=== PATIENT | female | born 1940 | race Caucasian/White ===

== ENCOUNTER 2016-12-16 17:08 | Emergency (ER) | payer MEDICARE, OTHER ==
[~2016-12-16] VITALS: Ht 152.4 cm; Wt 52.5 kg
[~2016-12-16 17:08] MED LIST: AMLO-320 PO; ASPI-650 PO; CEPH-443 PO; FERR-55 PO; GLIP2.5T14 PO; GLIP5TAB13 PO; LEVO88TA3 PO; METF500T4 PO; PHEN-538 PO; ROSU20TA PO; VALS1TAB65 PO
[2016-12-16 17:16] VITALS: Ht 152.4 cm; Wt 52.5 kg
--- NOTE | 2016-12-16 17:50 | ERD ---
ER Documentation Chief Complaint Date/Time DATE: 12/16/16 TIME: 17:43 Chief Complaint S/P TRIPPED AND FALL,LEFT ELBOW PAIN HPI This pleasant 76-year-old female presents to emergency department today after mechanical trip and fall about 40 minutes ago in her backyard. Patient reports that her foot caught on something. States that she felt a little dizzy and fell. Patient denies hitting her head or loss of consciousness. She was able to get up without assistance, patient noticed she had an abrasion to her left elbow, pain in her elbow and pain in her left hand. Patient states she washed her wound with soap water, hydrogen peroxide. Developed a hematoma on her hand within minutes after fall. Patient states she called friends to have them take her to the emergency department but no one was available at this time. Patient states that she took a taxi over here. Patient reports pain is minimal, denies numbness or tingling to her fingers. Denies headache, nausea, or vomiting. ROS All systems reviewed and are negative except as per history of present illness. Medications Home Meds Active Scripts Acetaminophen* (Tylophen*) 500 Mg Capsule, 1 CAP PO Q6H Y for PAIN AND OR ELEVATED TEMP, #20 CAP Prov:JAYLEN,ED 12/16/16 Neomycn/Baci Zn/Pmyx Bs/Pramox (NEOSPORIN + PAIN RELIEF OINT) 28.3 Gm Oint...g. , 28.3 GM TP BID, #1 TUB Prov:JAYLEN,ED 12/16/16 Phenazopyridine Hcl* (Pyridium*) 200 Mg Tab, 200 MG PO TID Y for URINARY PAIN for 2 Days, #6 TAB Prov:JATIN LEMON PA-C 01/14/16 Cephalexin* (Keflex*) 500 Mg Capsule, 500 MG PO TID for 7 Days, CAP Prov:JATIN LEMON PA-C 01/14/16 Reported Medications Amlodipine-Atorvastatin (Amlodipine-Atorvastatin) 10-10 Mg Tablet, 1 EACH PO DAILY, TAB 10/11/15 Glipizide XL* (Glipizide XL*) 2.5 Mg Tab.er.24, 2.5 MG PO DAILY, TAB 10/11/15 Ferrous Sulfate* (Ferrous Sulfate*) 325 Mg Tablet, PO DAILY 12/15/12 Aspirin (Aspirin) 81 Mg Tablet, PO DAILY 12/15/12 Rosuvastatin Calcium* (Crestor*) 20 Mg Tablet, PO DAILY 12/15/12 Levothyroxine Sodium* (Levothyroxine Sodium*) 88 Mcg Tablet, PO DAILY 12/15/12 Valsartan-Hydrochlorothiazide (Diovan HCT) 1 Tab Tablet, PO BID 12/15/12 Glipizide* (Glipizide*) 5 Mg Tablet, PO DAILY 12/15/12 Metformin* (Glucophage*) 500 Mg Tab, PO BID 12/15/12 Allergies Allergies: Coded Allergies: No Known Drug Allergies (Verified Allergy, Unknown, 12/16/16) PMhx/Soc History of Surgery: Yes (hysterectomy 1994, carotid SURGERY 2004) Anesthesia Reaction: No Hx Neurological Disorder: Yes Hx Respiratory Disorders: Yes Hx Cardiac Disorders: Yes (GOING TO PACEMAKER 2ND HEART BLOCK) Hx Psychiatric Problems: No Hx Miscellaneous Medical Probl: No Hx Alcohol Use: No Hx Substance Use: No Hx Tobacco Use: No Smoking Status: Never smoker Physical Exam Vitals Vitals stable, triage notes reviewed Physical Exam Const: No acute distress Head: Atraumatic Eyes: Normal Conjunctiva, PERRLA, EOMI ENT: Normal External Ears, Nose and Mouth. Neck: Cardio: Abd: Skin: Left posterior forearm abrasion Back: Ext: Upper Extremity -left hand, forearm, elbow: Skin: Left posterior forearm superficial abrasion not actively bleeding at this time, left hand between thumb and first digit presents with a soft palpable hematoma Compartments: Soft Motor: Full active range of motion shoulder/elbow/wrist/ hand Sensation: Intact shoulder/pinky/middle finger/thumb web space Bones: Nontender humerus/elbow/forearm/wrist/hand Snuffbox: Palpable tenderness, hematoma noted Joints: No effusion Pulses/Perfusion: 2+ radial, Capillary refill < 2 seconds Neur: Neuro: M/S: Alert and oriented Face: EOMI, face and pharynx with normal sensation and function Motor: Normal strength throughout Sensation: Normal sensation throughout Speech: Normal Cerebel: Normal coordination Normal gait Normal finger to nose DTR: 2+ and symmetric upper/lower extremities Psych: Normal Mood and Affect Nexus criteria assessment: MLTTP: None Intoxication: None Distracting Injury: None Focal Neurodeficit: None AMS: None [Patient does not meet criteria for cervical imaging.] Results 24 hrs Current Medications Medications (Trade) Dose Ordered Sig/Willard Route PRN Reason Start Time Stop Time Status Last Admin Dose Admin Acetaminophen (Tylenol Tab) 650 mg ONCE ONCE PO 12/16/16 18:00 12/16/16 18:01 DC 12/16/16 17:51 Procedures/MDM PROCEDURE: X-ray left hand CLINICAL INDICATION: Fall with left hand injury. TECHNIQUE: 3 views left hand. COMPARISON: None. FINDINGS: Demineralization limits evaluation of fine osseous detail. Suspected remote injury of the radial collateral ligament at the fourth MCP joint with heterotopic ossification. No acute fracture dislocation. Soft tissues otherwise unremarkable. IMPRESSION: No acute fracture. Physician Mario Date Time Electronically viewed and signed by Physician Mario on 12/16/2016 19:12 PROCEDURE: X-ray left elbow. CLINICAL INDICATION: Tip in fall with left elbow pain. TECHNIQUE: 3 views left elbow COMPARISON: None FINDINGS: Demineralization limits evaluation of fine osseous detail. No acute fracture or dislocation. Enthesophyte at the lateral humeral condyle. Soft tissues unremarkable. IMPRESSION: No acute fracture. Physician Mario Date Time Electronically viewed and signed by Physician Mario on 12/16/2016 19:11 This pleasant 76-year-old female presents to emergency department after mechanical trip and fall in her backyard with injury to left elbow, and left hand. Patient reports history of diabetes, hypertension, controlled on medication. Patient states her foot got caught on something, fell and she reports dizziness. Patient states blood pressure has been stable, she denies chest pain, shortness of breath, or dizziness or numbness or tingling to her fingertips at this time. Patient has full range of motion of left arm elbow and hand. Reports she was able to stand after fall without assistance. At home wound care with soap water and hydrogen peroxide, low suspicion for fracture x-rays obtained; x-ray left elbow demineralization limits evaluation of fine osseous details no acute fracture or dislocation ENTHESOPHYTE at the lateral humeral condyle. Soft tissue unremarkable. X-ray left hand demineralization limits evaluation of fine osseous details. Suspected remote injury of the radial contralateral ligament at the fourth MCP joint with heterotopic ossification. No acute fracture or dislocation. Soft tissue otherwise unremarkable. No acute fracture. Patient placed in a left thumb spica and Tylenol for pain, I feel patient is appropriate for outpatient management with primary care physician. I feel the patient is stable for discharge at this time. I have discussed results, examination findings, the treatment plan with the patient and family present prior to discharge. Indications for emergent reevaluation, side effects of medication were also discussed. All questions were answered. Patient verbalizes understanding and agrees with plan of care. Departure Diagnosis: Primary Impression: Abrasion of elbow, left Encounter type: initial encounter Qualified Code: S50.312A - Abrasion of elbow, left, initial encounter Additional Impression: Contusion of left hand, initial encounter Condition: Good Patient Instructions: Abrasion, Contusion, Hand Additional Instructions: Thank you for for coming to [facility] for your care today. Please ask your nurse or provider if you have questions about your care today and do not leave until all your questions have been answered. Please use any medications given as directed and follow-up with your doctor (or the doctor you were referred to) in the next 2-3 days. If you do not have a primary care doctor you may follow up at the [facility] (listed below). You may also use motrin and tylenol as needed for fever and/or pain unless instructed otherwise by your provider or nurse. Indications for more urgent follow-up have been discussed, but you may return to the Emergency Department at ANY time for any worrisome or worsening symptoms. If you have abdominal pain, please know that no test or exam you received is perfect and you should follow up within 8 hours for continued pain. If you had any imaging studies today, such as an X-Ray or CT Scan, these studies will be reviewed later by a radiologist. You will be called if there are important findings that were not identified today, so make sure the contact information you provided at registration is correct. If you received any narcotic pain control medicine today, such as Vicodin, Morphine or Dilaudid, your coordination and judgment may be affected for a number of hours. Please do not drive or operate heavy machinery, and you may want someone to assist you at home. If you were given a prescription for narcotic medication, be aware that it is very addictive- use sparingly and only if necessary. ED [place] Dec 16, 2016 17:50
[2016-12-16] MEDS ORDERED: ACETAMINOPHEN 325 MG TAB PO ONE (18:00)
[2016-12-16] MEDS ORDERED: NEOM28.34 TP (18:05)
[2016-12-16] MEDS ORDERED: ACET500C5 PO (18:06)
--- NOTE | 2016-12-16 19:11 | RADRPT ---
PROCEDURE: X-ray left elbow. CLINICAL INDICATION: Tip in fall with left elbow pain. TECHNIQUE: 3 views left elbow COMPARISON: None FINDINGS: Demineralization limits evaluation of fine osseous detail. No acute fracture or dislocation. Enthe sophyte at the lateral humeral condyle. Soft tissues unremarkable. IMPRESSION: No acute fracture. RPTAT: [facility] Physician Mario Date Time Electronically viewed and signed by Yaneli Pope Physician on 12/16/2016 19:11 RS/
--- NOTE | 2016-12-16 19:12 | RADRPT ---
PROCEDURE: X-ray left hand CLINICAL INDICATION: Fall with left hand injury. TECHNIQUE: 3 views left hand. COMPARISON: None. FINDINGS: Demineralization limits evaluation of fine osseous detail. Suspected remote injury of the radial co llateral ligament at the fourth MCP joint with heterotopic ossification. No acute fracture dislocat ion. Soft tissues otherwise unremarkable. IMPRESSION: No acute fracture. RPTAT: [facility] Physician Mario Date Time Electronically viewed and signed by Yaneli Pope Physician on 12/16/2016 19:12 RS/
[2016-12-16 19:55] VITALS: BP 138/65; PULSE 107; RESP 16
== END 2016-12-16 20:01 | disposition home or self-care (01) ==
LOC: FTE 17:08
DX: S50.312A Abrasion of left elbow, initial encounter (principal); S60.222A Contusion of left hand, initial encounter; I10 Essential (primary) hypertension; E11.9 Type 2 diabetes mellitus without complications; E03.9 Hypothyroidism, unspecified; W01.0XXA Fall on same level from slipping, tripping and stumbling without subsequent striking against object, initial encounter; Y92.89 Other specified places as the place of occurrence of the external cause; Z95.0 Presence of cardiac pacemaker; Z79.84 Long term (current) use of oral hypoglycemic drugs; Z79.82 Long term (current) use of aspirin

== ENCOUNTER 2017-06-06 15:28 | Emergency (ER) | END 2017-06-06 20:01 | disposition home or self-care (01) | DX: S32.019A Unspecified fracture of first lumbar vertebra, initial encounter for closed fracture (principal); I10 Essential (primary) hypertension; E11.9 Type 2 diabetes mellitus without complications; E03.9 Hypothyroidism, unspecified; W01.198A Fall on same level from slipping, tripping and stumbling with subsequent striking against other object, initial encounter; Y92.9 Unspecified place or not applicable; Z79.82 Long term (current) use of aspirin; Z79.84 Long term (current) use of oral hypoglycemic drugs; Z95.0 Presence of cardiac pacemaker ==

== ENCOUNTER 2017-06-10 20:33 | Emergency (ER) | payer MEDICARE, OTHER ==
[~2017-06-10] VITALS: Ht 152.4 cm; Wt 52.0 kg
[~2017-06-10 20:33] MED LIST changes: +ACET500C5 PO; -AMLO-320 PO; +AMLO-321 PO; +NEOM28.34 TP; +TRAM50TA2 PO
[2017-06-10 20:37] VITALS: Ht 152.4 cm; Wt 52.0 kg
[2017-06-10] MEDS ORDERED: MAGN296S40 PO (20:53)
[2017-06-10] MEDS ORDERED: SENN-53 PO (20:53)
[2017-06-10] MEDS ORDERED: ONDA4TAB14 PO (20:53)
[2017-06-10] MEDS ORDERED: DOCU-144 PO (20:53)
[2017-06-10] MEDS ORDERED: LACTULOSE 30ML CUP PO ONE (21:00)
[2017-06-10 21:13] VITALS: BP 126/68; PULSE 81; RESP 20; TEMP 98.4
--- NOTE | 2017-06-10 22:36 | ERD ---
ER Documentation Chief Complaint Date/Time DATE: 06/10/17 TIME: 22:34 Chief Complaint c/o abd pain and constipation x 4 days. Dc'd 06/06/17 for back fx. HPI Patient is a 77-year-old female with hypertension and diabetes who presents with abdominal pain and constipation. She said that she was seen for a visit on June 06 and was diagnosed with a compression fracture and was given a prescription for tramadol and Tylenol. On June 07 she started with vomiting and then has had constipation over the past few days. She has not had a bowel movement since June 07. Upon review of old medical records the patient has multiple visits to the ER for various complaints. Her primary doctor is Dr. Jimenez. ROS All systems reviewed and are negative except as per history of present illness. Medications Home Meds Active Scripts Ondansetron (Ondansetron Odt) 4 Mg Tab.rapdis, 4 MG PO Q6H Y for NAUSEA AND/OR VOMITING, #10 TAB Prov:JUAN HERRON MD 06/10/17 Magnesium Citrate* (Magnesium Citrate*) 296 Ml Solution, 296 ML PO ONCE, #1 BOTTLE Prov:JUAN HERRON MD 06/10/17 Sennosides* (Senna Lax*) 8.6 Mg Tablet, 1 TAB PO DAILY, #30 TAB Prov:JUAN HERRON MD 06/10/17 Docusate Sodium* (Colace*) 100 Mg Capsule, 100 MG PO TID, #30 CAP Prov:JUAN HERRON MD 06/10/17 Tramadol HCl (Tramadol HCl) 50 Mg Tablet, 50 MG PO Q4 Y for PAIN, #20 TAB Prov:CASPER MILLARD MD 06/06/17 Acetaminophen* (Tylophen*) 500 Mg Capsule, 1 CAP PO Q6H Y for PAIN AND OR ELEVATED TEMP, #20 CAP Prov:CASPER MILLARD MD 06/06/17 Acetaminophen* (Tylophen*) 500 Mg Capsule, 1 CAP PO Q6H Y for PAIN AND OR ELEVATED TEMP, #20 CAP Prov:JAYLENED 12/16/16 Neomycn/Baci Zn/Pmyx Bs/Pramox (NEOSPORIN + PAIN RELIEF OINT) 28.3 Gm Oint...g. , 28.3 GM TP BID, #1 TUB Prov:JAYLEN,ED 12/16/16 Phenazopyridine Hcl* (Pyridium*) 200 Mg Tab, 200 MG PO TID Y for URINARY PAIN for 2 Days, #6 TAB Prov:JATIN LEMON PA-C 01/14/16 Cephalexin* (Keflex*) 500 Mg Capsule, 500 MG PO TID for 7 Days, CAP Prov:JATIN LEMON PA-C 01/14/16 Reported Medications Amlodipine-Atorvastatin (Amlodipine-Atorvastatin) 10-10 Mg Tablet, 1 EACH PO DAILY, TAB 10/11/15 Glipizide XL* (Glipizide XL*) 2.5 Mg Tab.er.24, 2.5 MG PO DAILY, TAB 10/11/15 Ferrous Sulfate* (Ferrous Sulfate*) 325 Mg Tablet, PO DAILY 12/15/12 Aspirin (Aspirin) 81 Mg Tablet, PO DAILY 12/15/12 Rosuvastatin Calcium* (Crestor*) 20 Mg Tablet, PO DAILY 12/15/12 Levothyroxine Sodium* (Levothyroxine Sodium*) 88 Mcg Tablet, PO DAILY 12/15/12 Valsartan-Hydrochlorothiazide (Diovan HCT) 1 Tab Tablet, PO BID 12/15/12 Glipizide* (Glipizide*) 5 Mg Tablet, PO DAILY 12/15/12 Metformin* (Glucophage*) 500 Mg Tab, PO BID 12/15/12 Allergies Allergies: Coded Allergies: No Known Drug Allergies (Verified Allergy, Unknown, 06/06/17) PMhx/Soc History of Surgery: Yes (hysterectomy 1994, carotid SURGERY 2004 ) Anesthesia Reaction: No Hx Neurological Disorder: Yes Hx Respiratory Disorders: Yes Hx Cardiac Disorders: Yes (HTN , PACEMAKER ) Hx Psychiatric Problems: No Hx Miscellaneous Medical Probl: Yes (DM , HYPOTHYROID ) Hx Alcohol Use: No Hx Substance Use: No Hx Tobacco Use: No Smoking Status: Never smoker FmHx Family History: No diabetes Physical Exam Vitals Vital Signs Date Time Temp Pulse Resp B/P Pulse Ox O2 Delivery O2 Flow Rate FiO2 06/10/17 21:13 98.4 81 20 126/68 97 Room Air 06/10/17 20:37 98.4 102 20 126/68 97 Physical Exam Const: No acute distress Head: Atraumatic Eyes: Normal Conjunctiva ENT: Normal External Ears, Nose and Mouth. Neck: Full range of motion..~ No meningismus. Resp: Clear to auscultation bilaterally Cardio: Regular rate and rhythm, no murmurs Abd: Soft, non tender, non distended. Normal bowel sounds Skin: No petechiae or rashes Back: No midline or flank tenderness Ext: No cyanosis, or edema Neur: Awake and alert Psych: Normal Mood and Affect Results 24 hrs Current Medications Medications (Trade) Dose Ordered Sig/Willard Route PRN Reason Start Time Stop Time Status Last Admin Dose Admin Lactulose (Enulose) 20 gm ONCE ONCE PO 06/10/17 21:00 06/10/17 21:01 DC 06/10/17 21:05 Procedures/MDM Patient is a 77-year-old male with hypertension and diabetes who presents with vomiting and constipation. She has no abdominal pain on exam and no distention. I believe she likely has constipation and vomiting from recent tramadol prescription. She was not given any stool softeners and I believe she likely became constipated from the narcotic medicine. The patient is otherwise well-appearing and well-hydrated. She had a CT scan done on June 06 and had no acute surgical process at that time. I do not believe she requires repeat CT scan or laboratory studies at this time. I believe outpatient management is appropriate but the patient will need close follow-up with her primary doctor within 24-48 hours for reevaluation. She can return sooner for any worsening symptoms. Departure Diagnosis: Primary Impression: Constipation Constipation type: unspecified constipation type Qualified Code: K59.00 - Constipation, unspecified constipation type Additional Impression: Abdominal pain Abdominal location: generalized Qualified Code: R10.84 - Generalized abdominal pain Condition: Fair Patient Instructions: Abdominal Pain, Treating Constipation Additional Instructions: Call your primary care doctor TOMORROW for an appointment during the next 1-2 days.See the doctor sooner or return here if your condition worsens before your appointment time. JUAN HERRON MD Jun 10, 2017 22:36
== END 2017-06-10 21:14 | disposition home or self-care (01) ==
LOC: E/R 20:33
DX: K59.00 Constipation, unspecified (principal); E11.9 Type 2 diabetes mellitus without complications; I10 Essential (primary) hypertension; E03.9 Hypothyroidism, unspecified; Z79.82 Long term (current) use of aspirin; Z79.84 Long term (current) use of oral hypoglycemic drugs; Z95.0 Presence of cardiac pacemaker
CPT/HCPCS: 99283

== ENCOUNTER 2017-06-27 14:38 | Emergency (ER) | payer MEDICARE, OTHER ==
[~2017-06-27] VITALS: Ht 149.9 cm; Wt 50.0 kg
[~2017-06-27 14:38] MED LIST changes: +DOCU-144 PO; +MAGN296S40 PO; +ONDA4TAB14 PO; +SENN-53 PO
[2017-06-27 14:40] VITALS: Ht 149.9 cm; Wt 50.0 kg
[2017-06-27] MEDS ORDERED: KETOROLAC 15 MG INJ IV STA (16:18)
[2017-06-27 16:39] VITALS: BP 155/61; PULSE 88; RESP 18; TEMP 98.1
[2017-06-27 16:50] LABS: BASOPHILS % 0.4 % (0.0-2.0); EOSINOPHILS % 0.2 % (0.0-7.0); HEMATOCRIT 31.8 % (37.0-47.0); LYMPHOCYTES # 0.9 10^3/ul (0.8-2.9); LYMPHOCYTES % 21.1 % (15.0-51.0); MEAN CORPUSCULAR HEMOGLOBIN 29.5 pg (29.0-33.0); MEAN CORPUSCULAR HGB CONC 34.6 g/dl (32.0-37.0); MEAN CORPUSCULAR VOLUME 85.3 fl (82.0-101.0); MONOCYTE # 0.7 10^3/ul (0.3-0.9); MONOCYTES % 15.2 % (0.0-11.0); NEUTROPHIL # 2.8 10^3/ul (1.6-7.5); NEUTROPHILS % 62.9 % (39.0-77.0); PLATELET COUNT 290 10^3/UL (140-415); RED BLOOD COUNT 3.73 10^6/ul (4.20-5.40); RED CELL DISTRIBUTION WIDTH 11.7 % (11.5-14.5); WHITE BLOOD COUNT 4.5 10^3/ul (4.8-10.8)
[2017-06-27 17:12] LABS: ALBUMIN 4.8 g/dl (3.3-4.9); ALBUMIN/GLOBULIN RATIO 1.33; BILIRUBIN,INDIRECT 0.5 mg/dl (0-1.1); BILIRUBIN,TOTAL 0.5 mg/dl (0.2-1.3); CALCIUM 9.4 mg/dl (8.4-10.2); CREATININE 0.77 mg/dl (0.44-1.00); POTASSIUM 3.2 mmol/L (3.5-5.1); TOTAL PROTEIN 8.4 g/dl (6.1-8.1)
--- NOTE | 2017-06-27 17:50 | RADRPT ---
PROCEDURE: CT Abdomen and Pelvis without contrast. CLINICAL INDICATION: Abdominal pain. Status post x 3 weeks[address] TECHNIQUE: CT scan of the abdomen and pelvis without contrast was performed on a multidetector hig h-resolution CT scanner. The patient was scanned without intravenous contrast. Coronal and sagittal reformatted images were obtained from the axial source images. Images were reviewed on a high-resol [employer] PACS workstation. The total exam CTDI equals 5.68 mGy and the total exam DLP equals 282.08 mGy -cm. One or more of the following dose reduction techniques were used: Automated exposure control. Adjustment of the mA and/or kV according to patient size. Use of iterative reconstruction technique. COMPARISON: None FINDINGS: CT abdomen: The lung bases are clear. The heart size is normal, without pericardial thickening or effusion. Par antonettellstephanie imaged pacemaker leads seen in the right heart. The liver is normal in size and density without focal mass or intrahepatic biliary dilatation. The spleen is normal in size and homogeneous in density. The stomach is partially collapsed, but is geoffrey ssly unremarkable. The pancreas as visualized is normal. The gallbladder is unremarkable. There is no evidence for biliary dilatation. The adrenal glands are symmetric and normal. The kidneys are symmetrically unremarkable as well. There is 4 mm nonobstructing stone in the mid pole left kidney. The aorta is of normal caliber. Aortic vascular calcifications are present. There is no retroperit gregg lymphadenopathy. The anuj hepatis region is clear. There are scattered colonic diverticula without evidence of acute diverticulitis. CT pelvis: The small bowel loops situated within the pelvis are unremarkable. The uterus is not identified. T he pelvic sidewalls and inguinal regions are clear. The sigmoid colon and rectum are unremarkable. No mass, lymphadenopathy, or free fluid is seen. No acute inflammation is seen. The surrounding o sseous structures are remarkable for degenerative spondylosis of the spine. No osteolytic or osteob lastic lesion is detected. Acute/subacute compression fracture of L1 with approximately 40% height l oss with minimal retropulsion. IMPRESSION: 1. Acute/subacute compression fracture of L1 with progressive height loss now measures approximatel y 40%. Minimal retropulsion with no significant canal stenosis. 2. Punctate nonobstructing left renal stone. 3. Scattered colonic diverticula without evidence of acute diverticulitis. 4. Aortoiliac atherosclerosis. RPTAT: BB .Fernando Barrett MD, MD Date Time Electronically viewed and signed by .Fernando Barrett MD, MD on 06/27/2017 17:44 .O/
[2017-06-27] MEDS ORDERED: SOD CHLORIDE 0.9% 1,000 ML IV ONE (18:00)
[2017-06-27] MEDS ORDERED: POTASSIUM CHLORIDE (SR) 20 MEQ TAB PO STA (18:05)
[2017-06-27] MEDS ORDERED: LEVO88TA3 PO (18:24)
[2017-06-27] MEDS ORDERED: METF500T4 PO (18:24)
[2017-06-27] MEDS ORDERED: AMLO-147 PO (18:24)
[2017-06-27] MEDS ORDERED: VALS160T20 PO (18:25)
[2017-06-27] MEDS ORDERED: HYDR12.58 PO (18:25)
[2017-06-27] MEDS ORDERED: ROSU20TA PO (18:26)
[2017-06-27] MEDS ORDERED: ASPI-664 PO (18:26)
[2017-06-27 18:55] LABS: ADD UMIC YES; UR ASCORBIC ACID NEGATIVE (NEGATIVE); UR BILIRUBIN (Dip) NEGATIVE (NEGATIVE); UR BLOOD (Dip) NEGATIVE (NEGATIVE); UR CLARITY CLEAR (CLEAR); UR COLOR YELLOW (YELLOW); UR GLUCOSE (Dip) NEGATIVE (NEGATIVE); UR KETONES (Dip) NEGATIVE (NEGATIVE); UR LEUKOCYTE ESTERASE (Dip) 1+ Leu/ul (NEGATIVE); UR NITRITE (Dip) NEGATIVE (NEGATIVE); UR NONSQUAMOUS EPITHELIAL CELL 1 /HPF (NONE SEEN); UR RBC 0 /HPF (0-5); UR SPECIFIC GRAVITY (Dip) 1.011 (1.003-1.030); UR TOTAL PROTEIN (Dip) NEGATIVE (NEGATIVE); UR UROBILINOGEN (Dip) 1+ mg/dL (NEGATIVE)
[2017-06-27] MEDS ORDERED: DOCU-144 PO (19:17)
[2017-06-27] MEDS ORDERED: CEPH-443 PO (19:17)
[2017-06-27] MEDS ORDERED: CEPHALEXIN 500 MG CAP PO ONE (19:30)
--- NOTE | 2017-06-28 00:15 | ERD ---
ER Documentation Chief Complaint Chief Complaint ABD PAIN AND BACK PAIN S/P FALL 06/06/17 HPI 77-year-old woman complains of diffuse abdominal discomfort and small bowel movements. She has a history of constipation and was seen and evaluated here recently for the same. She denies dysuria, no fevers or chills, no chest pain or shortness of breath. ROS All systems reviewed and are negative except as per history of present illness. Medications Home Meds Active Scripts Docusate Sodium* (Colace*) 100 Mg Capsule, 100 MG PO BID for CONSTIPATION, #30 CAP Prov:SHANELL ANDRADE MD 06/27/17 Cephalexin* (Keflex*) 500 Mg Capsule, 500 MG PO TID for 5 Days, CAP Prov:SHANELL ANDRADE MD 06/27/17 Reported Medications Aspirin* (Aspirin* EC) 81 Mg Tablet.dr, 81 MG PO DAILY, TAB 06/27/17 Rosuvastatin Calcium* (Crestor*) 20 Mg Tablet, 20 MG PO QHS, #30 TAB 06/27/17 Valsartan* (Diovan*) 160 Mg Tablet, 160 MG PO BID, TAB 06/27/17 Hydrochlorothiazide* (Hydrochlorothiazide*) 12.5 Mg Tablet, 12.5 MG PO DAILY, # 30 TAB 06/27/17 Amlodipine Besylate* (Amlodipine Besylate*) 10 Mg Tablet, 10 MG PO DAILY, #30 TAB 06/27/17 Levothyroxine Sodium* (Levothyroxine Sodium*) 88 Mcg Tablet, 88 MCG PO BEFORE BREAKFAST, #30 TAB 06/27/17 Metformin Hcl* (Metformin Hcl*) 500 Mg Tablet, 500 MG PO WITH BREAKFAST DINNE, # 60 TAB 06/27/17 Discontinued Reported Medications Amlodipine-Atorvastatin (Amlodipine-Atorvastatin) 10-10 Mg Tablet, 1 EACH PO DAILY, TAB 10/11/15 Glipizide XL* (Glipizide XL*) 2.5 Mg Tab.er.24, 2.5 MG PO DAILY, TAB 10/11/15 Ferrous Sulfate* (Ferrous Sulfate*) 325 Mg Tablet, PO DAILY 12/15/12 Aspirin (Aspirin) 81 Mg Tablet, PO DAILY 12/15/12 Rosuvastatin Calcium* (Crestor*) 20 Mg Tablet, PO DAILY 12/15/12 Levothyroxine Sodium* (Levothyroxine Sodium*) 88 Mcg Tablet, PO DAILY 12/15/12 Valsartan-Hydrochlorothiazide (Diovan HCT) 1 Tab Tablet, PO BID 12/15/12 Glipizide* (Glipizide*) 5 Mg Tablet, PO DAILY 12/15/12 Metformin* (Glucophage*) 500 Mg Tab, PO BID 12/15/12 Discontinued Scripts Ondansetron (Ondansetron Odt) 4 Mg Tab.rapdis, 4 MG PO Q6H Y for NAUSEA AND/OR VOMITING, #10 TAB Prov:JUAN HERRON MD 06/10/17 Magnesium Citrate* (Magnesium Citrate*) 296 Ml Solution, 296 ML PO ONCE, #1 BOTTLE Prov:JUAN HERRON MD 06/10/17 Sennosides* (Senna Lax*) 8.6 Mg Tablet, 1 TAB PO DAILY, #30 TAB Prov:JUAN HERRON MD 06/10/17 Docusate Sodium* (Colace*) 100 Mg Capsule, 100 MG PO TID, #30 CAP Prov:JUAN HERRON MD 06/10/17 Tramadol HCl (Tramadol HCl) 50 Mg Tablet, 50 MG PO Q4 Y for PAIN, #20 TAB Prov:CASPER MILLARD MD 06/06/17 Acetaminophen* (Tylophen*) 500 Mg Capsule, 1 CAP PO Q6H Y for PAIN AND OR ELEVATED TEMP, #20 CAP Prov:CASPER MILLARD MD 06/06/17 Acetaminophen* (Tylophen*) 500 Mg Capsule, 1 CAP PO Q6H Y for PAIN AND OR ELEVATED TEMP, #20 CAP Prov:JAYLENED 12/16/16 Neomycn/Baci Zn/Pmyx Bs/Pramox (NEOSPORIN + PAIN RELIEF OINT) 28.3 Gm Oint...g. , 28.3 GM TP BID, #1 TUB Prov:JAYLEN,ED 12/16/16 Phenazopyridine Hcl* (Pyridium*) 200 Mg Tab, 200 MG PO TID Y for URINARY PAIN for 2 Days, #6 TAB Prov:JATIN LEMON PA-C 01/14/16 Cephalexin* (Keflex*) 500 Mg Capsule, 500 MG PO TID for 7 Days, CAP Prov:JATIN LEMON PA-C 01/14/16 Allergies Allergies: Coded Allergies: No Known Drug Allergies (Verified Allergy, Unknown, 06/27/17) PMhx/Soc Hypertension, hypothyroidism, gastritis, chronic constipation, diabetes mellitus , recent L spine fracture History of Surgery: Yes (hysterectomy 1994, carotid SURGERY 2004 ) Anesthesia Reaction: No Hx Neurological Disorder: Yes Hx Respiratory Disorders: Yes Hx Cardiac Disorders: Yes (HTN , PACEMAKER ) Hx Psychiatric Problems: No Hx Miscellaneous Medical Probl: Yes (DM , HYPOTHYROID ) Hx Alcohol Use: No Hx Substance Use: No Hx Tobacco Use: No Smoking Status: Never smoker FmHx Family History: No diabetes Physical Exam Vitals Vital Signs Date Time Temp Pulse Resp B/P Pulse Ox O2 Delivery O2 Flow Rate FiO2 06/27/17 16:39 98.1 88 18 155/61 98 Room Air 06/27/17 14:40 98.5 85 16 115/57 97 Physical Exam GENERAL: Well-developed, well-nourished, well-hydrated, in no apparent distress , looks nontoxic in appearance HEENT: Moist mucous membranes, pink conjunctiva, no cervical spine tenderness or step-off deformities, no goiter, no jaundice or icterus, extraocular movements intact without pain. No submandibular induration, and no pharyngeal erythema NEURO: Alert and oriented 3, cranial nerves II through XII intact bilaterally, pupils equal round reactive to light, no focal deficits or facial asymmetry, sensation intact distally Strength 5/5 in upper and lower extremities bilaterally CARDIAC: Regular rate and rhythm, no murmurs rubs or gallops LUNGS: Clear bilaterally no wheezing crackles or stridor ABDOMEN: Soft nontender, no guarding, no rigidity, no rebound, no psoas sign no obturator sign. Normoactive bowel sounds SKIN: Warm and dry to touch, no abrasions, contusions, or hematomas, no lacerations, no ecchymosis, no target lesions, and without ulcers EXTREMITIES: No clubbing cyanosis or edema, calves are bilaterally symmetrical, no Homans sign, no popliteal cord sign. Distal pulses equal and bilateral PSYCH: Normal affect without agitation or irritability Result Diagram: 06/27/17 1624 06/27/17 1624 Results 24 hrs Laboratory Tests Test 06/27/17 16:24 06/27/17 18:15 10/25/17 18:33 White Blood Count 4.510^3/ul Red Blood Count 3.7310^6/ul Hemoglobin 11.0g/dl Hematocrit 31.8% Mean Corpuscular Volume 85.3fl Mean Corpuscular Hemoglobin 29.5pg Mean Corpuscular Hemoglobin Concent 34.6g/dl Red Cell Distribution Width 11.7% Platelet Count 10329^3/UL Mean Platelet Volume 9.0fl Neutrophils % 62.9% Lymphocytes % 21.1% Monocytes % 15.2% Eosinophils % 0.2% Basophils % 0.4% Nucleated Red Blood Cells % 0.0/100WBC Neutrophils # 2.810^3/ul Lymphocytes # 0.910^3/ul Monocytes # 0.710^3/ul Eosinophils # 0.010^3/ul Basophils # 0.010^3/ul Nucleated Red Blood Cells # 0.010^3/ul Sodium Level 126mmol/L Potassium Level 3.2mmol/L Chloride Level 82mmol/L Carbon Dioxide Level 29mmol/L Anion Gap 18 Blood Urea Nitrogen 12mg/dl Creatinine 0.77mg/dl Glucose Level 150mg/dl Calcium Level 9.4mg/dl Total Bilirubin 0.5mg/dl Direct Bilirubin 0.00mg/dl Indirect Bilirubin 0.5mg/dl Aspartate Amino Transf (AST/SGOT) 29IU/L Alanine Aminotransferase (ALT/SGPT) 33IU/L Alkaline Phosphatase 137IU/L Total Protein 8.4g/dl Albumin 4.8g/dl Globulin 3.60g/dl Albumin/Globulin Ratio 1.33 Lipase 282U/L Urine Color YELLOW Urine Clarity CLEAR Urine pH 6.0 Urine Specific Stem 1.011 Urine Ketones NEGATIVEmg/dL Urine Nitrite NEGATIVEmg/dL Urine Bilirubin NEGATIVEmg/dL Urine Urobilinogen 1+mg/dL Urine Leukocyte Esterase 1+Ralph/ul Urine Microscopic RBC 0/HPF Urine Microscopic WBC 13/HPF Urine Hemoglobin NEGATIVEmg/dL Urine Glucose NEGATIVEmg/dL Urine Total Protein NEGATIVEmg/dl Bedside Glucose 165mg/dL Current Medications Medications (Trade) Dose Ordered Sig/Willard Route PRN Reason Start Time Stop Time Status Last Admin Dose Admin Ketorolac Tromethamine 15 mg 15 mg ONCE STAT IV 06/27/17 16:18 06/27/17 16:19 DC 06/27/17 16:37 Sodium Chloride (NS) 1,000 ml @ 1,000 mls/hr Q1H ONCE IV 06/27/17 18:00 06/27/17 18:59 DC 06/27/17 17:41 Potassium Chloride (Klor-Con 20) 40 meq ONCE STAT PO 06/27/17 18:05 06/27/17 18:06 DC 06/27/17 18:27 Cephalexin (Keflex) 500 mg ONCE ONCE PO 06/27/17 19:30 06/27/17 19:31 DC 06/27/17 19:32 Procedures/MDM IV line was established patient was placed on hospital monitor rhythm strip revealed a sinus rhythm at about 80 bpm with upright P and T waves. Patient was afebrile I administered 1 L normal saline intravenously and Toradol [address] scan of the abdomen and pelvis was performed, given the patient's symptoms. There was no acute inflammatory or infectious pathology noted, vascular structures were unremarkable. Please refer radiologist's dictation for full report. She was unremarkable, electrolytes revealed mild hypokalemia, liver function tests normal, troponin negative. I treated her here with oral potassium supplementation. Urine analysis was concerning for early UTI and I treated her here with cephalexin 500 mg p.o. 1. Patient will follow up with PMD for continued outpatient management Differential diagnoses considered, included but not limited to acute coronary syndrome, pulmonary embolism, aortic dissection, abdominal aortic aneurysm, sepsis, stroke, meningitis, encephalitis, pneumonia, appendicitis, cholecystitis , bowel obstruction, pyelonephritis, nephrolithiasis, cystitis, as well as metabolic, hematologic, and electrolyte abnormalities. As well as abscess, cellulitis, fractures, and dislocations. Patient feels much better at this time, and vital signs are normal, symptoms have improved. I did give strict instructions to return to the ED if symptoms continue or worsen, patient will otherwise follow-up with primary care physician. Patient understood instructions and agreed to plan. Disclaimer: Inadvertent spelling and grammatical errors are likely due to EHR/ dictation software use and do not reflect on the overall quality of patient care. Also, please note that the electronic time recorded on this note does not necessarily reflect the actual time of the patient encounter. Departure Diagnosis: Primary Impression: Urinary tract infection Urinary tract infection type: acute cystitis Hematuria presence: without hematuria Qualified Code: N30.00 - Acute cystitis without hematuria Additional Impression: Constipation Constipation type: slow transit constipation Qualified Code: K59.01 - Slow transit constipation Condition: Good Patient Instructions: Constipation (Adult), Bladder Infection, Female (Adult) Referrals: TORI BLOCK MD (PCP) SHANELL ANDRADE MD Jun 28, 2017 00:14
== END 2017-06-27 19:12 | disposition home or self-care (01) ==
LOC: E/R 14:38
DX: N30.00 Acute cystitis without hematuria (principal); K59.01 Slow transit constipation; I10 Essential (primary) hypertension; E03.9 Hypothyroidism, unspecified; E11.9 Type 2 diabetes mellitus without complications; Z79.82 Long term (current) use of aspirin; Z79.84 Long term (current) use of oral hypoglycemic drugs; Z95.0 Presence of cardiac pacemaker
CPT/HCPCS: 36415; 74176; 80053; 81001; 82962; 83690; 85025; 96374; 99285; J1885; J7030

== ENCOUNTER → 2018-11-28 | Outpatient (CLI) | payer MEDICARE, OTHER ==
[~2018-11-28] MED LIST changes: -ACET500C5 PO; +AMLO-147 PO; -AMLO-321 PO; -ASPI-650 PO; +ASPI-817 PO; -FERR-55 PO; -GLIP2.5T14 PO; -GLIP5TAB13 PO; +HYDR12.58 PO; -MAGN296S40 PO; +METF500T24 PO; -METF500T4 PO; -NEOM28.34 TP; -ONDA4TAB14 PO; -PHEN-538 PO; -SENN-53 PO; -TRAM50TA2 PO; +VALS160T20 PO; -VALS1TAB65 PO
== END | disposition home or self-care (01) ==
LOC: RAD 13:35
PROVIDERS: ATTEND Internal Medicine
DX: R07.9 Chest pain, unspecified (principal)
CPT/HCPCS: 71100

== ENCOUNTER 2018-12-04 05:59 | Day surgery (SDC) | payer MEDICARE, OTHER ==
[~2018-12-04] VITALS: Ht 147.3 cm; Wt 50.1 kg
[~2018-12-04 05:59] MED LIST changes: +CRES20 PO; -ROSU20TA PO
[2018-12-04 07:01] VITALS: Ht 147.3 cm; Wt 50.1 kg
--- NOTE | 2018-12-04 07:23 | PREAC ---
Date/Time of Note Date/Time of Note DATE: 12/04/18 TIME: : Anesthesia Eval and Record Evaluation Time Pre-Procedure Interview DATE: 12/04/18 TIME: 07:22 Age 78 Sex female NPO: 8 hrs Preoperative diagnosis constipation Planned procedure colonoscopy Past Medical History Past Medical History: Includes Cardio: HTN, Dyslipidemia, PPM/AICD (pacemaker placed about 2 years ago) Endo: Diabetes Surgery & Anesthesia Issues No known issue Meds Anticoagulation: No Beta Amrik within 24 hr: No Reason Beta Amrik not given: Pt. not on B-Amrik Reported Medications Aspirin* (Aspirin* EC) 81 Mg Tablet.dr, 81 MG PO DAILY, TAB 06/27/17 Rosuvastatin Calcium* (Crestor*) 20 Mg Tablet, 20 MG PO QHS, #30 TAB 06/27/17 Hydrochlorothiazide* (Hydrochlorothiazide*) 12.5 Mg Tablet, 12.5 MG PO DAILY, #30 TAB 06/27/17 Amlodipine Besylate* (Amlodipine Besylate*) 10 Mg Tablet, 10 MG PO DAILY, #30 TAB 06/27/17 Levothyroxine Sodium* (Levothyroxine Sodium*) 88 Mcg Tablet, 88 MCG PO BEFORE BREAKFAST, #30 TAB 06/27/17 Metformin Hcl* (Metformin Hcl*) 500 Mg Tablet, 500 MG PO WITH BREAKFAST DINNE, #60 TAB 06/27/17 Discontinued Reported Medications Valsartan* (Diovan*) 160 Mg Tablet, 160 MG PO BID, TAB 06/27/17 Discontinued Scripts Docusate Sodium* (Colace*) 100 Mg Capsule, 100 MG PO BID for CONSTIPATION, #30 CAP Prov:SHANELL ANDRADE MD 06/27/17 Cephalexin* (Keflex*) 500 Mg Capsule, 500 MG PO TID for 5 Days, CAP Prov:SHANELL ANDRADE MD 06/27/17 Meds reviewed: Yes Allergies Coded Allergies: erythromycin base (Verified Allergy, Mild, ITCHY, 12/04/18) PER PATIENT A LONG TIME AGO Allergies Reviewed: Yes Labs/Studies Labs Reviewed: Reviewed by anesthesiologist test: N/A Pre-procedure Exam Airway: Adequate mouth opening, Adequate thyromental dist Mallampati: Mallampati II Teeth: Normal Lung: Normal Heart: Normal ASA Physical Status ASA physical status: 3 Emergency: None Planned Anesthetic General/MAC: Mask Planned Pain Management Parenteral pain med Pre-operative Attestations Prior to commencing anesthesia and surgery, the patient was re-evaluated, there was verification of: *The patient's identity *The results of appropriate recent lab work and preoperative vital signs *The above evaluation not changing prior to induction *Anesthetic plan, risk benefits, alternative and complications discussed with patient/family; questions answered; patient/family understands, accepts and wishes to proceed. ANNA XAVIER MD Dec 04, 2018 07:23
[2018-12-04] MEDS ORDERED: LIDOCAINE 2% (SDV) 5 ML INJ ONE (07:27)
[2018-12-04] MEDS ORDERED: PROPOFOL 40 ML ONE (07:27)
[2018-12-04] MEDS ORDERED: ONDANSETRON 4 MG INJ IV PRN (07:30)
[2018-12-04 07:35] VITALS: BP 156/70; PULSE 51; RESP 15
--- NOTE | 2018-12-04 08:18 | PAC ---
Date/Time of Note Date/Time of Note DATE: 12/04/18 TIME: 08:17 Post-Anesthesia Notes Post-Anesthesia Note Last documented vital signs Vital Signs Date Temp Pulse Resp B/P (MAP) Pulse Ox O2 O2 Flow FiO2 Time Delivery Rate 12/04/18 51 15 156/70 98 Room Air 07:35 (98) Activity: WNL Respiratory function: WNL Cardiovascular function: WNL Mental status: Baseline Pain reasonably controlled: Yes Hydration appropriate: Yes Nausea/Vomiting absent: Yes Comments BP: 116/56 HR: 74 RR: 15 T: 98 SaO2: 99% ANNA XAVIER MD Dec 04, 2018 08:18
[2018-12-04 08:45] VITALS: BP 147/65; PULSE 65; RESP 18
== END 2018-12-04 09:13 | disposition home or self-care (01) ==
LOC: GIL 05:59
PROVIDERS: ATTEND Internal Medicine Gastroenterology
DX: R19.4 Change in bowel habit (principal); Q27.33 Arteriovenous malformation of digestive system vessel; K57.30 Diverticulosis of large intestine without perforation or abscess without bleeding; I10 Essential (primary) hypertension; E78.5 Hyperlipidemia, unspecified; E11.9 Type 2 diabetes mellitus without complications; Z79.82 Long term (current) use of aspirin; Z79.84 Long term (current) use of oral hypoglycemic drugs; Z95.0 Presence of cardiac pacemaker
CPT/HCPCS: 82962; 88305